=== PATIENT | male | born 1980 | race Caucasian/White ===

== ENCOUNTER → 2021-06-13 | Day surgery (SDC) | payer OTHER ==
[~2021-06-13] VITALS: Ht 172.7 cm; Wt 92.5 kg
[~2021-06-13] MED LIST: BENTYL10 MG PO; CARAFATE1 GM PO; INSULIN; OMEPRAZOLE40 MG PO; ZOFRAN4 M1 PO
[2021-06-13 09:34] LABS: HCT 49.2 % (42.0-52.0); HGB 17.4 g/dl (13.2-18.0); MCH 32.5 pg (25.0-31.0); MCHC 35.4 g/dL (32.0-36.0); MPV 9.9 fL (6.0-9.5); RBC 5.35 M/uL (4.70-6.00); RDW 11.5 % (11.5-14.0); WBC 9.3 K/uL (4.0-10.5)
[2021-06-13 09:50] LABS: ALBUMIN 3.6 g/dL (3.4-5.0); CREATININE 0.75 mg/dL (0.67-1.17); GLOBULIN (CALCULATION) 3.2 g/dL; POTASSIUM 4.2 mmol/L (3.5-5.1); TOTAL PROTEIN 6.8 g/dL (6.4-8.2)
== END | disposition home or self-care (01) ==
LOC: FAS 08:25
PROVIDERS: Surgery
DX: K29.80 Duodenitis without bleeding (principal); K29.50 Unspecified chronic gastritis without bleeding; K21.9 Gastro-esophageal reflux disease without esophagitis; I10 Essential (primary) hypertension; E11.9 Type 2 diabetes mellitus without complications; Z79.4 Long term (current) use of insulin; Z88.0 Allergy status to penicillin
CPT/HCPCS: 36415; 80053; J2250; J2704; J7120

== ENCOUNTER 2021-12-06 08:22 | Emergency (ER) | payer OTHER ==
[2021-12-06 08:57] LABS: BASOPHIL 0.7 % (0-2); EOSINOPHIL 1.2 % (0-5); HCT 47.8 % (42.0-52.0); HGB 16.8 g/dl (13.2-18.0); LYMPHOCYTE 22.2 % (15-48); MCH 32.4 pg (25.0-31.0); MCHC 35.1 g/dL (32.0-36.0); MCV 92.1 fL (78.0-100.0); MONOCYTE 5.4 % (0-12); NEUTROPHIL 70.3 % (41-80); NRBC 0; PLT 210 K/uL (150-400); RBC 5.19 M/uL (4.70-6.00); RDW 12.3 % (11.5-14.0); WBC 10.9 K/uL (4.0-10.5)
[2021-12-06 09:11] LABS: ALBUMIN 4.5 g/dL (3.4-5.0); BILIRUBIN - TOTAL 0.6 mg/dL (0.2-1.0); GLOBULIN (CALCULATION) 3.3 g/dL; POTASSIUM 4.2 mmol/L (3.5-5.1); TOTAL PROTEIN 7.8 g/dL (6.4-8.2)
[2021-12-06 09:20] LABS: CORONAVIRUS 2019 SARS-COV-2 NEGATIVE (NEGATIVE); INFLUENZA A NAA NEGATIVE (NEGATIVE)
[2021-12-06 09:35] LABS: BILIRUBIN 1+ mg/dL (NEGATIVE); BLOOD NEGATIVE Ery/uL (NEGATIVE); CLARITY CLEAR (CLEAR); COLOR YELLOW (YELLOW); GLUCOSE (U) NORMAL (NORMAL); LEUKOCYTES NEGATIVE Leu/uL (NEGATIVE); NITRITE NEGATIVE (NEGATIVE); PROTEIN NEGATIVE (NEGATIVE); SPECIFIC GRAVITY >=1.030 (1.001-1.030); UROBILINOGEN 0.2 mg/dL (0.2-1.0)
[2021-12-06] MEDS ORDERED: BENTYL10 MG PO (11:03)
[2021-12-06] MEDS ORDERED: ONDANSETRON ODT4 MG PO (11:03)
[2021-12-06] MEDS ORDERED: PHENERGAN25 M1 PO (11:03)
== END 2021-12-06 11:20 | disposition home or self-care (01) ==
LOC: FER 08:22
PROVIDERS: Emergency Medicine
DX: R10.13 Epigastric pain (principal); R11.2 Nausea with vomiting, unspecified; E11.9 Type 2 diabetes mellitus without complications; F17.290 Nicotine dependence, other tobacco product, uncomplicated; Z79.4 Long term (current) use of insulin; Z88.0 Allergy status to penicillin; Z20.822 Contact with and (suspected) exposure to COVID-19
CPT/HCPCS: 36415; 80053; 81003; 83690; 84145; 84484; 85025; J1885; J2405; J2550; J7030; Q9967; U0002

== ENCOUNTER 2021-12-11 11:46 | Emergency (ER) | payer OTHER ==
[~2021-12-11] VITALS: Ht 172.7 cm; Wt 113.4 kg
[~2021-12-11 11:46] MED LIST changes: +ONDANSETRON ODT4 MG PO; +PHENERGAN25 M1 PO
[2021-12-11 12:52] LABS: BASOPHIL 0.8 % (0-2); EOSINOPHIL 0.9 % (0-5); HCT 50.1 % (42.0-52.0); HGB 17.1 g/dl (13.2-18.0); LYMPHOCYTE 17.7 % (15-48); MCH 32.3 pg (25.0-31.0); MCHC 34.1 g/dL (32.0-36.0); MCV 94.5 fL (78.0-100.0); MONOCYTE 4.2 % (0-12); MPV 10.4 fL (6.0-9.5); NEUTROPHIL 75.9 % (41-80); NRBC 0; PLT 212 K/uL (150-400); RDW 12.6 % (11.5-14.0); WBC 8.8 K/uL (4.0-10.5)
[2021-12-11 13:07] LABS: LACTIC ACID 1.8 mmol/L (0.4-1.9)
[2021-12-11 13:12] LABS: BUN 13 mg/dL (7-18); CHLORIDE 105 mmol/L (98-107); CO2 (BICARBONATE) 25 mmol/L (21-32); CREATININE 0.99 mg/dL (0.67-1.17); GLUCOSE 196 mg/dL (74-106); POTASSIUM 4.3 mmol/L (3.5-5.1)
[2021-12-11 13:21] LABS: ALBUMIN 4.5 g/dL (3.4-5.0); ALKALINE PHOSHATASE 59 U/L (46-116); ALT 36 U/L (16-63); AST 23 U/L (15-37); BILIRUBIN - TOTAL 0.5 mg/dL (0.2-1.0); C-REACTIVE PROTEIN < 0.20 mg/dL (<=0.90); GLOBULIN (CALCULATION) 3.9 g/dL; LDH 208 U/L (85-227); LIPASE 268 U/L (73-393); MAGNESIUM 1.9 mg/dL (1.8-2.4); TOTAL PROTEIN 8.4 g/dL (6.4-8.2)
[2021-12-11 13:47] LABS: CORONAVIRUS 2019 SARS-COV-2 NEGATIVE (NEGATIVE); INFLUENZA A NAA NEGATIVE (NEGATIVE)
[2021-12-11 14:14] LABS: BILIRUBIN NEGATIVE (NEGATIVE); BLOOD NEGATIVE Ery/uL (NEGATIVE); CLARITY CLEAR (CLEAR); COLOR YELLOW (YELLOW); GLUCOSE (U) 2+ mg/dL (NORMAL); LEUKOCYTES NEGATIVE Leu/uL (NEGATIVE); NITRITE NEGATIVE (NEGATIVE); PROTEIN NEGATIVE (NEGATIVE); SPECIFIC GRAVITY 1.025 (1.001-1.030); UROBILINOGEN 0.2 mg/dL (0.2-1.0)
[2021-12-11 14:19] LABS: AMPHETAMINES NEGATIVE (NEGATIVE); BARBITURATES NEGATIVE (NEGATIVE); ECSTASY (MDMA) NEGATIVE (NEGATIVE); MARIJUANA (THC) POSITIVE (NEGATIVE); METHADONE NEGATIVE (NEGATIVE); OPIATES NEGATIVE (NEGATIVE); OXYCODONE NEGATIVE (NEGATIVE)
[2021-12-11] MEDS ORDERED: PHENERGAN25 M1 PO (15:21)
[2021-12-11] MEDS ORDERED: DICYCLOMINE HCL20 MG PO (15:21)
== END 2021-12-11 15:48 | disposition home or self-care (01) ==
LOC: FER 11:46
PROVIDERS: Emergency Medicine
DX: R10.9 Unspecified abdominal pain (principal); R11.2 Nausea with vomiting, unspecified; I10 Essential (primary) hypertension; E10.9 Type 1 diabetes mellitus without complications; F17.290 Nicotine dependence, other tobacco product, uncomplicated; Z88.0 Allergy status to penicillin; Z20.822 Contact with and (suspected) exposure to COVID-19
CPT/HCPCS: 36415; 36600; 80053; 80305; 81003; 82728; 82803; 83605; 83615; 83690; 83735; 83880; 84145; 84439; 84443; 84484; 85025; 86140; 93005; G0480; J1170; J2060; J2405; J7120; U0002